=== PATIENT | male | born 1945 | race Caucasian/White ===

== ENCOUNTER 2018-08-15 19:12 | Emergency (ER) | payer MEDICARE ==
[~2018-08-15] VITALS: Ht 177.8 cm; Wt 96.0 kg
[~2018-08-15 19:12] MED LIST: ASPI-515 PO; ATOR-2 PO; BUME1TAB21 PO; CARV12.543 PO; CEFD300C37 PO; CLOP75TA PO; DOXY100T PO; Folic Acid PO; HYDR-3237 PO; INSU100V5 SQ-INSULIN; ISOS20TA3 PO; LATA2.5D3 EACHEYE; LISI-170 PO; MAGN400T7 PO; METF500T27 PO; OMEP-110 PO; PRED20TA PO; RIVA1TAB PO; SPIR25TA5 PO; TERA5CAP3 PO; THIA100T67 PO; TIMO5DRO5 EACHEYE
--- NOTE | 2018-08-15 19:46 | NUR ---
Assumed care of patient. C/O dry cough x 2 weeks. C/O one episode of diaphoresis, chest tightness and dizziness around 1700, since resolved. Expiratory wheezing. +smoker. Denies COPD Hx. Hx CHF, HTN, DM, and pacer. 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 Will continue to monitor.
[2018-08-15] MEDS ORDERED: SODIUM CHLORIDE FLUSH 10ML SYR IVF ONE (20:30)
[2018-08-15] MEDS ORDERED: SODIUM CHLORIDE 0.9% 1,000ML IVBOLUS ONE ×3 (20:30→21:00)
[2018-08-15 20:47] LABS: BASOPHILS # (AUTO) 0.03 x10^3/uL (0-0.1); BASOPHILS % (AUTO) 0 % (0-1); EOSINOPHILS # (AUTO) 0.17 x10^3/uL (0-0.4); EOSINOPHILS % (AUTO) 2 % (1-7); LYMPHOCYTES # (AUTO) 1.76 x10^3/uL (1-3.4); LYMPHOCYTES % (AUTO) 22 % (22-44); MD NO; MEAN CORPUSCULAR HGB CONC 34.6 g/dL (33.2-36.2); MEAN CORPUSCULAR VOLUME 92.4 fL (81-97); MEAN PLATELET VOLUME 10.3 fL (7.4-10.4); MONOCYTES # (AUTO) 0.48 x10^3/uL (0.2-0.8); MONOCYTES % (AUTO) 6 % (2-9); NEUTROPHILS # (AUTO) 5.51 x10^3/uL (1.8-6.8); NEUTROPHILS % (AUTO) 69 % (42-75); PLATELET COUNT 123 x10^3/uL (130-400); RED BLOOD COUNT 3.68 x10^6/uL (4.38-5.82); RED CELL DISTRIBUTION WIDTH 16.4 % (9.4-14.8)
[2018-08-15 20:56] LABS: INTERNATIONAL NORMALIZED RATIO 1.89 (0.93-1.1); PROTHROMBIN TIME 19.4 Seconds (9.6-11.5)
[2018-08-15 20:57] LABS: ALBUMIN 3.7 g/dL (3.4-5.0); ANION GAP 8 mmol/L (5-15); CALCIUM 8.3 mg/dL (8.5-10.1); CHLORIDE 110 mmol/L (98-107)
[2018-08-15 21:03] LABS: ALANINE AMINOTRANSFERASE 24 U/L (12-78); ALKALINE PHOSPHATASE 86 U/L (45-117); BILIRUBIN,TOTAL 1.2 mg/dL (0.2-1.0); CREATININE 1.37 mg/dL (0.7-1.3); TOTAL PROTEIN 6.8 g/dL (6.4-8.2); TROPONIN I 0.042 ng/mL (0.000-0.045)
[2018-08-15 21:15] VITALS: BP 105/61
--- NOTE | 2018-08-15 21:15 | NUR ---
Remains slightly hypotensive despite fluid bolus. Second 500 mL NS bolus hung. No other needs.
--- NOTE | 2018-08-15 22:06 | NUR ---
Patient/Caregiver given discharge instructions and they have confirmed that they understand the instructions. Patient ambulatory with steady gait.
== END 2018-08-15 22:07 | disposition home or self-care (01) ==
LOC: ED 21:56
DX: I95.9 Hypotension, unspecified (principal); I10 Essential (primary) hypertension; E11.9 Type 2 diabetes mellitus without complications; Z95.0 Presence of cardiac pacemaker
CPT/HCPCS: 36415; 71045; 80053; 84484; 85025; 85610; 85730; 93005; 96360; 99284; J7030

== ENCOUNTER 2019-04-23 12:00 | Emergency (ER) | payer MEDICARE, MEDICAID ==
[~2019-04-23] VITALS: Ht 177.8 cm; Wt 99.0 kg
[~2019-04-23 12:00] MED LIST changes: -MAGN400T7 PO; +MAGN400T9 PO
[2019-04-23 12:19] VITALS: BP 127/43
[2019-04-23] MEDS ORDERED: DEXAMETHASONE 4 MG TABLET ONE ×2 (13:29→13:32)
[2019-04-23] MEDS ORDERED: DEXAMETHASONE 4 MG TABLET PO ONE (13:30)
== END 2019-04-23 13:36 | disposition home or self-care (01) ==
LOC: ED 13:00
DX: B34.9 Viral infection, unspecified (principal); R42 Dizziness and giddiness; I10 Essential (primary) hypertension; I48.91 Unspecified atrial fibrillation; Z87.891 Personal history of nicotine dependence
CPT/HCPCS: 71046; 93005; 99283

== ENCOUNTER 2019-12-31 08:24 | Emergency (ER) | payer MEDICARE, MEDICAID ==
[~2019-12-31] VITALS: Ht 177.8 cm; Wt 96.0 kg
[2019-12-31 08:30] VITALS: BP 110/46
== END 2019-12-31 09:38 | disposition home or self-care (01) ==
LOC: ED 09:24
DX: S50.12XA Contusion of left forearm, initial encounter (principal); I10 Essential (primary) hypertension; E11.9 Type 2 diabetes mellitus without complications; I48.91 Unspecified atrial fibrillation; Z95.0 Presence of cardiac pacemaker; X58.XXXA Exposure to other specified factors, initial encounter; Y93.89 Activity, other specified; Y92.89 Other specified places as the place of occurrence of the external cause; Y99.8 Other external cause status
CPT/HCPCS: 99281

== ENCOUNTER 2020-01-23 17:32 | Emergency (ER) | payer MEDICARE, MEDICAID ==
[~2020-01-23] VITALS: Ht 177.8 cm; Wt 86.0 kg
--- NOTE | 2020-01-23 18:05 | NUR ---
C/O LEFT HAND SWELLING AND PAIN X2 DAYS, PT STATES PAIN IS 10/10. PLACED ON VITALS MONITORS. ER PROVIDER AT BEDSIDE FOR EVAL.
[2020-01-23] MEDS ORDERED: ONDANSETRON ODT 4 MG ONE (18:25)
[2020-01-23] MEDS ORDERED: HYDROcodone/APAP 5/325 TABLET ONE (18:25)
[2020-01-23] MEDS ORDERED: ONDANSETRON 4 MG TABLET PO ONE (18:30)
[2020-01-23] MEDS ORDERED: HYDROcodone/APAP 5/325 TABLET PO ONE (18:30)
[2020-01-23 18:31] LABS: BASOPHILS % (AUTO) 1 % (0-1); EOSINOPHILS # (AUTO) 0.02 x10^3/uL (0-0.4); EOSINOPHILS % (AUTO) 0 % (1-7); LYMPHOCYTES # (AUTO) 1.12 x10^3/uL (1-3.4); LYMPHOCYTES % (AUTO) 10 % (22-44); MD NO; MEAN CORPUSCULAR HEMOGLOBIN 30.9 pg (27.5-34.5); MEAN CORPUSCULAR HGB CONC 32.8 g/dL (33.2-36.2); MEAN CORPUSCULAR VOLUME 94.2 fL (81-97); MEAN PLATELET VOLUME 8.9 fL (7.4-10.4); MONOCYTES # (AUTO) 0.66 x10^3/uL (0.2-0.8); MONOCYTES % (AUTO) 6 % (2-9); NEUTROPHILS # (AUTO) 8.86 x10^3/uL (1.8-6.8); NEUTROPHILS % (AUTO) 82 % (42-75); PLATELET COUNT 140 x10^3/uL (130-400); RED BLOOD COUNT 3.22 x10^6/uL (4.38-5.82); RED CELL DISTRIBUTION WIDTH 15.4 % (9.4-14.8)
[2020-01-23 18:42] LABS: ALANINE AMINOTRANSFERASE 18 U/L (12-78); ALBUMIN 3.5 g/dL (3.4-5.0); ANION GAP 9 mmol/L (5-15); CALCIUM 8.8 mg/dL (8.5-10.1); CHLORIDE 109 mmol/L (98-107); CREATININE 1.47 mg/dL (0.7-1.3)
[2020-01-23 18:45] LABS: ALKALINE PHOSPHATASE 79 U/L (45-117); BILIRUBIN,TOTAL 1.7 mg/dL (0.2-1.0); TOTAL PROTEIN 6.9 g/dL (6.4-8.2)
--- NOTE | 2020-01-23 18:54 | NUR ---
PT IN NAD. FALL PRECAUTIONS IN PLACE, CALL LIGHT WITHIN REACH.
[2020-01-23] MEDS ORDERED: CEFTRIAXONE PMX 1GM/50ML 50 ML IV ONE (19:00)
[2020-01-23] MEDS ORDERED: CEFTRIAXONE PMX 1GM/50ML 50 ML ONE (19:15)
--- NOTE | 2020-01-23 19:17 | NUR ---
ABX RUNNING AFTER BLOOD CX DRAWN.
[2020-01-23 19:48] VITALS: BP 113/49
--- NOTE | 2020-01-23 19:51 | NUR ---
PT RESTING, REPORTS PAIN IS 2/10 ON PAIN SCALE, VSS. CALL LIGHT WITHIN REACH.
== END 2020-01-23 20:13 | disposition home or self-care (01) ==
LOC: ED 18:27
DX: L03.114 Cellulitis of left upper limb (principal); I12.9 Hypertensive chronic kidney disease with stage 1 through stage 4 chronic kidney disease, or unspecified chronic kidney disease; E11.22 Type 2 diabetes mellitus with diabetic chronic kidney disease; N18.2 Chronic kidney disease, stage 2 (mild); I48.91 Unspecified atrial fibrillation; Z95.0 Presence of cardiac pacemaker; Z87.891 Personal history of nicotine dependence
CPT/HCPCS: 36415; 80053; 83605; 84145; 85025; 87040; 96365; 99284; J0696; Q0162

== ENCOUNTER 2020-02-05 18:28 | Emergency (ER) | payer MEDICARE, MEDICAID ==
[~2020-02-05] VITALS: Ht 177.8 cm; Wt 96.2 kg
[2020-02-05 18:48] VITALS: BP 118/42
== END 2020-02-05 23:25 | disposition left against medical advice (07) ==
LOC: ED 22:50
DX: M79.645 Pain in left finger(s) (principal); I48.91 Unspecified atrial fibrillation; E11.9 Type 2 diabetes mellitus without complications; I10 Essential (primary) hypertension; Z95.0 Presence of cardiac pacemaker; Z87.891 Personal history of nicotine dependence
CPT/HCPCS: 82962; 99283

== ENCOUNTER 2020-04-10 07:48 | Emergency (ER) | payer MEDICARE, MEDICAID ==
[~2020-04-10] VITALS: Ht 177.8 cm; Wt 94.0 kg
[~2020-04-10 07:48] MED LIST changes: -LATA2.5D3 EACHEYE; +LATA2.5D4 EACHEYE
[2020-04-10 09:04] LABS: BASOPHILS % (AUTO) 1 % (0-1); EOSINOPHILS % (AUTO) 0 % (1-7); LYMPHOCYTES % (AUTO) 16 % (22-44); MEAN CORPUSCULAR HGB CONC 33.1 g/dL (33.2-36.2); MEAN PLATELET VOLUME 9.8 fL (7.4-10.4); MONOCYTES % (AUTO) 11 % (2-9); NEUTROPHILS % (AUTO) 73 % (42-75); PLATELET COUNT 138 x10^3/uL (130-400); RED CELL DISTRIBUTION WIDTH 16.6 % (9.4-14.8)
[2020-04-10 09:08] LABS: MD NO
[2020-04-10 09:14] LABS: ANION GAP 9 mmol/L (5-15); CALCIUM 9.5 mg/dL (8.5-10.1); CHLORIDE 103 mmol/L (98-107)
[2020-04-10 09:17] LABS: ALANINE AMINOTRANSFERASE 25 U/L (12-78); ALKALINE PHOSPHATASE 108 U/L (45-117); BILIRUBIN,TOTAL 1.5 mg/dL (0.2-1.0); CREATININE 2.17 mg/dL (0.7-1.3); TOTAL PROTEIN 8.1 g/dL (6.4-8.2)
[2020-04-10 11:24] VITALS: BP 110/74
== END 2020-04-10 11:25 | disposition home or self-care (01) ==
LOC: ED 11:15
DX: U07.1 COVID-19 (principal); N28.9 Disorder of kidney and ureter, unspecified; R42 Dizziness and giddiness; R51.9 Headache, unspecified; I10 Essential (primary) hypertension; E11.9 Type 2 diabetes mellitus without complications; I48.91 Unspecified atrial fibrillation
CPT/HCPCS: 36415; 71045; 80053; 85025; 87635; 99284

== ENCOUNTER 2020-07-07 19:25 | Inpatient (IN) | payer MEDICARE, MEDICAID ==
[~2020-07-07] VITALS: Ht 177.8 cm; Wt 89.8 kg
[~2020-07-07 19:25] MED LIST changes: +APIX5TAB PO; -ASPI-515 PO; +ASPI-963 PO; +ATOR40TA78 PO; +DULA0.75 SQ-INSULIN; +INSU100V35 SQ-INSULIN; +ISOS20TA10 PO; -ISOS20TA3 PO; +LOSA25TA25 PO; +METF500T17 PO; +OMEP40CA42 PO
[2020-07-07 21:31] LABS: BASOPHILS % (AUTO) 1 % (0-1); EOSINOPHILS % (AUTO) 1 % (1-7); LYMPHOCYTES % (AUTO) 20 % (22-44); MEAN CORPUSCULAR HEMOGLOBIN 30.1 pg (27.5-34.5); MEAN CORPUSCULAR HGB CONC 33.4 g/dL (33.2-36.2); MEAN PLATELET VOLUME 9.4 fL (7.4-10.4); MONOCYTES % (AUTO) 6 % (2-9); NEUTROPHILS % (AUTO) 72 % (42-75); PLATELET COUNT 124 x10^3/uL (130-400); RED BLOOD COUNT 3.24 x10^6/uL (4.38-5.82); RED CELL DISTRIBUTION WIDTH 18.4 % (9.4-14.8)
[2020-07-07 21:37] LABS: MD NO
[2020-07-07 21:41] LABS: ALBUMIN 3.6 g/dL (3.4-5.0); ANION GAP 11 mmol/L (5-15); CALCIUM 8.9 mg/dL (8.5-10.1); CHLORIDE 105 mmol/L (98-107); CREATININE 2.03 mg/dL (0.7-1.3)
[2020-07-07 21:45] LABS: TROPONIN I 0.058 ng/mL (0.000-0.045)
[2020-07-07] MEDS ORDERED: OMNIPAQUE 350 MG/ML, 100ML BOTTLE ONE (22:00)
[2020-07-07] MEDS ORDERED: SODIUM CHLORIDE 0.9% 1,000ML IVBOLUS ONE (23:00)
[2020-07-07] MEDS ORDERED: DEXTROSE 4 GM TAB.CHEW PO PRN (23:30)
[2020-07-07] MEDS ORDERED: GLUCAGON 1 MG IM PRN (23:30)
[2020-07-07] MEDS ORDERED: HYDROcodone/APAP 5/325 TABLET PO PRN (23:30)
[2020-07-07] MEDS ORDERED: ONDANSETRON 2MG/ML, 2ML IVPush PRN (23:30)
[2020-07-07] MEDS ORDERED: ACETAMINOPHEN 325 MG TABLET PO PRN (23:30)
[2020-07-07] MEDS ORDERED: DOCUSATE 100 MG CAPSULE PO PRN (23:30)
[2020-07-07] MEDS ORDERED: SODIUM CHLORIDE 0.9% 1,000 ML IV SCH (23:30)
[2020-07-07] MEDS ORDERED: hydrALAzine 20 MG/ML, 1ML IVPush PRN (23:30)
[2020-07-07] MEDS ORDERED: DEXTROSE 50%, 50ML SYRINGE IVPush PRN (23:30)
[2020-07-07 23:46] LABS: TROPONIN I 0.086 ng/mL (0.000-0.045)
[2020-07-08] VITALS: BP 95/62
[2020-07-08 00:02] VITALS: BP 104/66
[2020-07-08 00:05] VITALS: BP 112/66
[2020-07-08 05:22] LABS: BASOPHILS % (AUTO) 1 % (0-1); EOSINOPHILS % (AUTO) 2 % (1-7); LYMPHOCYTES % (AUTO) 27 % (22-44); MEAN CORPUSCULAR HEMOGLOBIN 30.3 pg (27.5-34.5); MEAN CORPUSCULAR HGB CONC 33.9 g/dL (33.2-36.2); MONOCYTES % (AUTO) 6 % (2-9); NEUTROPHILS % (AUTO) 64 % (42-75); PLATELET COUNT 100 x10^3/uL (130-400); RED BLOOD COUNT 3.03 x10^6/uL (4.38-5.82); RED CELL DISTRIBUTION WIDTH 18.2 % (9.4-14.8)
[2020-07-08 05:26] LABS: MD NO
[2020-07-08 05:30] LABS: ALBUMIN 3.3 g/dL (3.4-5.0); ANION GAP 9 mmol/L (5-15); CALCIUM 8.9 mg/dL (8.5-10.1); CHLORIDE 107 mmol/L (98-107)
[2020-07-08 05:38] LABS: ALANINE AMINOTRANSFERASE 21 U/L (12-78); ALKALINE PHOSPHATASE 80 U/L (45-117); BILIRUBIN,TOTAL 0.5 mg/dL (0.2-1.0); CREATININE 1.75 mg/dL (0.7-1.3); TOTAL PROTEIN 6.5 g/dL (6.4-8.2); TROPONIN I 0.136 ng/mL (0.000-0.045)
[2020-07-08] MEDS: INSULIN LISPRO 100 UNITS/ML, PEN SQ-INSULIN SCH ×4 (07:48→20:23)
[2020-07-08] MEDS ORDERED: METF500T17 PO (08:02)
[2020-07-08] MEDS ORDERED: SEMA0.25 SQ (08:02)
[2020-07-08] MEDS ORDERED: ISOS10TA6 PO (08:02)
[2020-07-08] MEDS ORDERED: FURO20TA3 PO (08:02)
[2020-07-08 08:28] VITALS: BP 116/75
[2020-07-08] MEDS ORDERED: APIXABAN 5 MG TABLET PO SCH (09:00)
[2020-07-08] MEDS: INSULIN GLARGINE 100 UNITS/ML, PEN SQ-INSULIN SCH (09:05)
[2020-07-08] MEDS: CARVEDILOL 12.5 MG TABLET PO SCH ×2 (09:06→20:22)
[2020-07-08] MEDS: OMEPRAZOLE 20 MG CAPSULE.DR PO SCH (09:06)
[2020-07-08] MEDS: SODIUM CHLORIDE FLUSH 10ML SYR IVF SCH ×2 (09:11→20:29)
[2020-07-08 09:37] LABS: TROPONIN I 0.162 ng/mL (0.000-0.045)
[2020-07-08] MEDS: TIMOLOL OPHTH 0.5%, 5ML EACHEYE SCH ×2 (09:49→20:25)
[2020-07-08] MEDS ORDERED: SODIUM CHLORIDE 0.9% 500 ML IV SCH (11:30)
[2020-07-08 12:26] VITALS: BP 98/63
[2020-07-08] MEDS: FUROSEMIDE 40 MG/4 ML IV SCH (14:24)
[2020-07-08 15:02] LABS: TROPONIN I 0.117 ng/mL (0.000-0.045)
[2020-07-08 16:45] LABS: CHLORIDE,URINE RANDOM 83 mmol/L; POTASSIUM,URINE RANDOM 39 mmol/L; SODIUM,URINE RANDOM 71 mmol/L
[2020-07-08 16:59] LABS: CREATININE,URINE RANDOM 43.4 mg/dL
[2020-07-08 19:25] VITALS: BP 119/79
[2020-07-08] MEDS: ATORVASTATIN 40 MG TABLET PO SCH (20:22)
[2020-07-08] MEDS: APIXABAN 5 MG TABLET PO SCH (20:22)
[2020-07-08] MEDS: LATANOPROST OPHTH 0.005%, 2.5ML EACHEYE SCH (21:00)
[2020-07-09] VITALS (7 sets, daily range): BP systolic 99–121; BP diastolic 65–99
[2020-07-09 00:08] LABS: TROPONIN I 0.091 ng/mL (0.000-0.045)
[2020-07-09 05:28] LABS: BASOPHILS % (AUTO) 1 % (0-1); EOSINOPHILS % (AUTO) 2 % (1-7); LYMPHOCYTES % (AUTO) 26 % (22-44); MEAN CORPUSCULAR HEMOGLOBIN 30.4 pg (27.5-34.5); MEAN CORPUSCULAR HGB CONC 33.8 g/dL (33.2-36.2); MEAN PLATELET VOLUME 10.3 fL (7.4-10.4); MONOCYTES % (AUTO) 6 % (2-9); NEUTROPHILS % (AUTO) 65 % (42-75); PLATELET COUNT 119 x10^3/uL (130-400); RED BLOOD COUNT 3.24 x10^6/uL (4.38-5.82); RED CELL DISTRIBUTION WIDTH 17.8 % (9.4-14.8)
[2020-07-09 05:29] LABS: ANION GAP 7 mmol/L (5-15); CALCIUM 8.5 mg/dL (8.5-10.1); CHLORIDE 108 mmol/L (98-107)
[2020-07-09 05:31] LABS: CREATININE 1.53 mg/dL (0.7-1.3)
[2020-07-09 05:44] LABS: MD NO
[2020-07-09] MEDS: INSULIN LISPRO 100 UNITS/ML, PEN SQ-INSULIN SCH ×4 (07:00→20:13)
[2020-07-09] MEDS: INSULIN GLARGINE 100 UNITS/ML, PEN SQ-INSULIN SCH (08:08)
[2020-07-09] MEDS: FUROSEMIDE 40 MG/4 ML IV SCH (08:09)
[2020-07-09] MEDS: SODIUM CHLORIDE FLUSH 10ML SYR IVF SCH ×2 (08:10→20:14)
[2020-07-09] MEDS: TIMOLOL OPHTH 0.5%, 5ML EACHEYE SCH ×2 (08:10→20:11)
[2020-07-09] MEDS: APIXABAN 5 MG TABLET PO SCH ×2 (08:12→20:11)
[2020-07-09] MEDS: CARVEDILOL 12.5 MG TABLET PO SCH ×2 (08:12→20:12)
[2020-07-09] MEDS: OMEPRAZOLE 20 MG CAPSULE.DR PO SCH (08:12)
[2020-07-09] MEDS: ATORVASTATIN 40 MG TABLET PO SCH (20:11)
[2020-07-09] MEDS: LATANOPROST OPHTH 0.005%, 2.5ML EACHEYE SCH (20:11)
[2020-07-10 00:17] VITALS: BP 142/92
[2020-07-10 05:48] LABS: BASOPHILS % (AUTO) 1 % (0-1); EOSINOPHILS % (AUTO) 2 % (1-7); LYMPHOCYTES % (AUTO) 20 % (22-44); MEAN CORPUSCULAR HEMOGLOBIN 30.5 pg (27.5-34.5); MEAN CORPUSCULAR HGB CONC 33.9 g/dL (33.2-36.2); MONOCYTES % (AUTO) 6 % (2-9); NEUTROPHILS % (AUTO) 71 % (42-75); PLATELET COUNT 112 x10^3/uL (130-400); RED BLOOD COUNT 3.28 x10^6/uL (4.38-5.82); RED CELL DISTRIBUTION WIDTH 18.3 % (9.4-14.8)
[2020-07-10 05:59] LABS: MD NO
[2020-07-10 06:02] LABS: CALCIUM 8.9 mg/dL (8.5-10.1); CHLORIDE 111 mmol/L (98-107)
[2020-07-10 06:05] LABS: ANION GAP 8 mmol/L (5-15); CREATININE 1.32 mg/dL (0.7-1.3)
[2020-07-10 07:00] VITALS: BP 112/70
[2020-07-10] MEDS: TIMOLOL OPHTH 0.5%, 5ML EACHEYE SCH (09:17)
[2020-07-10] MEDS: OMEPRAZOLE 20 MG CAPSULE.DR PO SCH (09:17)
[2020-07-10] MEDS: APIXABAN 5 MG TABLET PO SCH (09:17)
[2020-07-10] MEDS: INSULIN GLARGINE 100 UNITS/ML, PEN SQ-INSULIN SCH (09:18)
[2020-07-10] MEDS: CARVEDILOL 12.5 MG TABLET PO SCH (09:18)
[2020-07-10] MEDS: SODIUM CHLORIDE FLUSH 10ML SYR IVF SCH (09:19)
[2020-07-10] MEDS: INSULIN LISPRO 100 UNITS/ML, PEN SQ-INSULIN SCH ×2 (09:19→11:56)
[2020-07-10] MEDS: FUROSEMIDE 40 MG/4 ML IV SCH (09:20)
[2020-07-10] MEDS ORDERED: FURO20TA3 PO (10:01)
[2020-07-10] MEDS ORDERED: LOSA25TA25 PO (10:01)
[2020-07-10] MEDS ORDERED: ACET325T26 PO (10:01)
[2020-07-10 13:26] VITALS: BP 103/65
== END 2020-07-10 13:52 | DRG 280 ==
LOC: ED 21:33 → INTOOBSV 23:29 → EDIP 23:29 → 4WST 23:55 → OBSVTOIN 07-08 13:41
PROVIDERS: ADMIT Internal Medicine; ATTEND Internal Medicine
DX: I13.0 Hypertensive heart and chronic kidney disease with heart failure and stage 1 through stage 4 chronic kidney disease, or unspecified chronic kidney disease (principal); I50.23 Acute on chronic systolic (congestive) heart failure; I21.A1 Myocardial infarction type 2; N17.9 Acute kidney failure, unspecified; E87.2 Acidosis; D64.9 Anemia, unspecified; I95.1 Orthostatic hypotension; D69.6 Thrombocytopenia, unspecified; E11.22 Type 2 diabetes mellitus with diabetic chronic kidney disease; E78.5 Hyperlipidemia, unspecified; I99.8 Other disorder of circulatory system; I25.10 Atherosclerotic heart disease of native coronary artery without angina pectoris; I65.23 Occlusion and stenosis of bilateral carotid arteries; N18.31 Chronic kidney disease, stage 3a; Z66 Do not resuscitate; Z79.01 Long term (current) use of anticoagulants; Z79.4 Long term (current) use of insulin; Z87.891 Personal history of nicotine dependence; Z95.1 Presence of aortocoronary bypass graft; Z95.810 Presence of automatic (implantable) cardiac defibrillator
CPT/HCPCS: 36415; 70450; 70496; 70498; 80048; 80053; 80320; 82040; 82436; 82570; 82962; 83605; 83735; 83880; 84100; 84133; 84300; 84484; 85025; 93005; 93306; 99285; G0378; J1940; Q9967; G0480; J1815; J7030; J7040

== ENCOUNTER 2020-10-03 07:38 | Emergency (ER) | payer MEDICARE, MEDICAID ==
[~2020-10-03] VITALS: Ht 177.8 cm; Wt 86.9 kg
[~2020-10-03 07:38] MED LIST changes: +ACET325T26 PO; +FURO20TA3 PO; +ISOS10TA6 PO; -OMEP40CA42 PO; +OMEP40CA8 PO; +SEMA0.25 SQ
[2020-10-03] MEDS ORDERED: MAALOX/HYOSCYAMINE/LIDOCAINE 45 ML BTL PO ONE (08:00)
[2020-10-03] MEDS ORDERED: SODIUM CHLORIDE FLUSH 10ML SYR IVF ONE (08:00)
--- NOTE | 2020-10-03 08:10 | NUR ---
price lister: pt from lobby to x-ray then to room 1
--- NOTE | 2020-10-03 08:15 | NUR ---
ABD PAIN WHEN HE SWALLOWS X 1 WEEK. PT WITH STEADY GAIT TO BED. POSTIONED TO COMFORT. ATTACHED TO MONITORS. VSS. IBRAHIM.
[2020-10-03] MEDS ORDERED: MAALOX/HYOSCYAMINE/LIDOCAINE 45 ML BTL ONE (08:17)
--- NOTE | 2020-10-03 08:25 | NUR ---
pt medicated per emar. states "it feels like i have a burp stuck in my chest" after drinking gi cocktail
[2020-10-03 08:36] LABS: BASOPHILS % (AUTO) 1 % (0-1); EOSINOPHILS % (AUTO) 2 % (1-7); LYMPHOCYTES % (AUTO) 32 % (22-44); MEAN CORPUSCULAR HEMOGLOBIN 30.7 pg (27.5-34.5); MEAN CORPUSCULAR HGB CONC 33.3 g/dL (33.2-36.2); MEAN PLATELET VOLUME 9.8 fL (7.4-10.4); MONOCYTES % (AUTO) 7 % (2-9); NEUTROPHILS % (AUTO) 57 % (42-75); PLATELET COUNT 129 x10^3/uL (130-400); RED BLOOD COUNT 3.65 x10^6/uL (4.38-5.82); RED CELL DISTRIBUTION WIDTH 18.1 % (9.4-14.8)
[2020-10-03 08:37] LABS: MD NO
[2020-10-03 08:41] LABS: ALBUMIN 3.6 g/dL (3.4-5.0); ANION GAP 6 mmol/L (5-15); CALCIUM 8.9 mg/dL (8.5-10.1); CHLORIDE 106 mmol/L (98-107)
[2020-10-03 08:43] LABS: INTERNATIONAL NORMALIZED RATIO 1.35 (0.93-1.1); PROTHROMBIN TIME 14.4 Seconds (9.6-11.5)
[2020-10-03 08:46] LABS: ALANINE AMINOTRANSFERASE 81 U/L (12-78); ALKALINE PHOSPHATASE 127 U/L (45-117); BILIRUBIN,TOTAL 1.1 mg/dL (0.2-1.0); CREATININE 1.51 mg/dL (0.7-1.3); TOTAL PROTEIN 7.5 g/dL (6.4-8.2)
--- NOTE | 2020-10-03 08:49 | NUR ---
SBAR RPT REC'D AND PT CARE ASSUMED. PT VSS AND NADN. PT VERBALIZES THAT GI COCTAIL RESSOLVED HIS PAIN.
--- NOTE | 2020-10-03 08:50 | NUR ---
REPORT TO VINCE DIAZ.
[2020-10-03] MEDS ORDERED: FAMOTIDINE 20 MG/2 ML IVPush ONE (09:00)
[2020-10-03] MEDS ORDERED: FAMOTIDINE 20 MG TABLET ONE (09:08)
[2020-10-03] MEDS ORDERED: FAMOTIDINE 20 MG TABLET PO ONE (09:30)
[2020-10-03 10:56] VITALS: BP 100/68
--- NOTE | 2020-10-03 10:57 | NUR ---
Patient given discharge instructions and they have confirmed that they understand the instructions. Patient ambulatory with steady gait.
== END 2020-10-03 10:58 | disposition home or self-care (01) ==
LOC: ED 08:18
DX: K21.00 Gastro-esophageal reflux disease with esophagitis, without bleeding (principal); K80.20 Calculus of gallbladder without cholecystitis without obstruction; R10.13 Epigastric pain; Z79.01 Long term (current) use of anticoagulants; E11.9 Type 2 diabetes mellitus without complications
CPT/HCPCS: 36415; 71045; 76700; 80053; 83690; 83880; 85025; 85610; 93005; 99285

== ENCOUNTER 2020-10-13 01:42 | Observation (INO) | payer MEDICARE, MEDICAID ==
[~2020-10-13] VITALS: Ht 177.8 cm; Wt 91.3 kg
[2020-10-13] VITALS (7 sets, daily range): BP systolic 113–120; BP diastolic 63–81
[2020-10-13] MEDS ORDERED: TORS20TA2 PO (02:35)
[2020-10-13] MEDS ORDERED: CLOPIDOGREL PO (02:35)
[2020-10-13] MEDS ORDERED: INSU100V35 SC (02:35)
[2020-10-13] MEDS ORDERED: OMEG1CAP34 PO (02:35)
[2020-10-13] MEDS ORDERED: VIT1CAPS11 PO (02:35)
--- NOTE | 2020-10-13 02:39 | NUR ---
PT CAME INTO ED THIS EVENING DUE TO ABDOMINAL PAIN. WAS SEEN HERE ON THE FOR [facility] AND FOLLOWED UP WITH SURG. PT WAS TOLD TO COME BACK HERE IF PAIN WORSENED. PT REPORTS PAIN IS SIGNIFICANTLY WORSE NOW, PT DENIES VOMITTING OR DIARRHEA, PT REPORTS UPPER QUADRANT ABDOMINAL PAIN. PT APPEARS PALE. PT BED IN LOWEST, RAILS ENGAGED, CALL LIGHT ON LAP, WCTM.
[2020-10-13] MEDS ORDERED: MORPHINE SULFATE 4 MG/ML, 1ML ONE (02:57)
[2020-10-13] MEDS ORDERED: ONDANSETRON 2MG/ML, 2ML ONE (02:57)
[2020-10-13] MEDS ORDERED: SODIUM CHLORIDE FLUSH 10ML SYR IVF ONE (03:00)
[2020-10-13] MEDS ORDERED: ONDANSETRON 2MG/ML, 2ML IVPush ONE (03:00)
[2020-10-13] MEDS ORDERED: MORPHINE SULFATE 4 MG/ML, 1ML IVPush PRN (03:00)
--- NOTE | 2020-10-13 03:11 | NUR ---
Patient is resting in bed. PT SHOWING SIGNS OF PAIN. Bed in lowest, rails engaged, call light on lap. Vital Signs within normal limits. WCTM.
[2020-10-13 03:12] LABS: BASOPHILS % (AUTO) 1 % (0-1); EOSINOPHILS % (AUTO) 2 % (1-7); LYMPHOCYTES % (AUTO) 27 % (22-44); MEAN CORPUSCULAR HEMOGLOBIN 30.5 pg (27.5-34.5); MEAN PLATELET VOLUME 10.5 fL (7.4-10.4); MONOCYTES % (AUTO) 7 % (2-9); NEUTROPHILS % (AUTO) 63 % (42-75); PLATELET COUNT 120 x10^3/uL (130-400); RED BLOOD COUNT 3.42 x10^6/uL (4.38-5.82); RED CELL DISTRIBUTION WIDTH 18.4 % (9.4-14.8)
[2020-10-13 03:21] LABS: ALBUMIN 3.2 g/dL (3.4-5.0); ANION GAP 6 mmol/L (5-15); CHLORIDE 111 mmol/L (98-107)
[2020-10-13 03:25] LABS: ALANINE AMINOTRANSFERASE 30 U/L (12-78); ALKALINE PHOSPHATASE 118 U/L (45-117); BILIRUBIN,TOTAL 1.1 mg/dL (0.2-1.0); CREATININE 1.31 mg/dL (0.7-1.3); TOTAL PROTEIN 6.7 g/dL (6.4-8.2)
--- NOTE | 2020-10-13 04:11 | NUR ---
US AT BEDSIDE. PATRICE
[2020-10-13] MEDS ORDERED: CEFTRIAXONE 1,000 MG in DEXTROSE 5% 50 ML IVPB ONE (06:00)
--- NOTE | 2020-10-13 06:02 | NUR ---
Patient is SLEEPING comfortably in bed. Bed in lowest, rails engaged, call light on lap. Vital Signs within normal limits. WCTM. BREATHING EVEN AND UNLABORED.
--- NOTE | 2020-10-13 06:56 | NUR ---
GAVE REPORT TO JERALD DIAZ
--- NOTE | 2020-10-13 06:57 | NUR ---
Shara knight in ED - 10/13/20 at 0658 by [email or web address] I AM ASSUMING CARE OF THIS PT FROM SRIKANTH PRESLEY) AT THIS TIME. SBAR WAS EXCHANGED AT THE BEDSIDE.
--- NOTE | 2020-10-13 06:58 | NUR ---
I AM ASSUMING CARE OF THIS PT FROM SRIKANTH (JOE) AT THIS TIME. SBAR WAS EXCHANGED AT THE BEDSIDE.
--- NOTE | 2020-10-13 08:18 | NUR ---
BREAK RN: TALKED W SONIYA RN PRE OP. PT FOR HETAL AT 10AM. LAST PO INTAKE 7 PM YEST. PLAN RAPID COVID SWAB.
--- NOTE | 2020-10-13 08:26 | NUR ---
VERBAL SBAR EXCHANGED Francine MADRID (JOE) ON THE SURGICAL FLOOR. WE ARE DISCUSSING THE TIMING OF SURGERY DUE TO PLAVIX.
[2020-10-13] MEDS ORDERED: DEXTROSE 50%, 50ML SYRINGE ONE (08:31)
--- NOTE | 2020-10-13 08:38 | NUR ---
BREAK RN: BGL 48. CALLED [facility]. OBTAINED ORDER FOR 05/06 AMP D50, GIVEN AT [id number]. NOTIFIED PRIMARY RN.
--- NOTE | 2020-10-13 08:49 | NUR ---
PREPARING FOR TRANSPORT TO SURGICAL FLOOR AT THIS TIME.
[2020-10-13] MEDS ORDERED: D5%-LACTATED RINGERS 1,000 ML IV SCH (09:00)
[2020-10-13] MEDS ORDERED: DEXTROSE 50%, 50ML SYRINGE IVPush ONE (09:00)
[2020-10-13] MEDS ORDERED: morphine SULFATE 10 MG/ML, 1ML IVPush PRN (09:30)
[2020-10-13] MEDS ORDERED: DEXTROSE 50%, 50ML SYRINGE IVPush PRN ×2 (09:30)
[2020-10-13] MEDS ORDERED: LABETALOL 5MG/ML, 20ML IVPush PRN (09:30)
[2020-10-13] MEDS ORDERED: GLUCAGON 1 MG IM PRN ×2 (09:30)
[2020-10-13] MEDS ORDERED: ACETAMINOPHEN 325 MG TABLET PO PRN (09:30)
[2020-10-13] MEDS ORDERED: DEXTROSE 4 GM TAB.CHEW PO PRN ×2 (09:30)
[2020-10-13] MEDS ORDERED: CHLORHEXIDINE 15 ML UDC ONE (10:48)
[2020-10-13] MEDS: INSULIN LISPRO 100 UNITS/ML, PEN SQ-INSULIN SCH ×3 (11:00→21:25)
[2020-10-13] MEDS ORDERED: CHLORHEXIDINE 15 ML UDC PO ONE (11:00)
[2020-10-13] MEDS ORDERED: BUPIVACAINE/PF 0.5% ONE (11:11)
[2020-10-13] MEDS ORDERED: FENTANYL PF 250 MCG/5ML ONE (11:26)
[2020-10-13] MEDS ORDERED: SUCCINYLCHOLINE 20 MG/ML, 10ML ONE (11:29)
[2020-10-13] MEDS ORDERED: PROPOFOL 10 MG/ML, 20ML ONE (11:29)
[2020-10-13] MEDS ORDERED: D5%-0.9% NACL 1,000 ML IV SCH (11:30)
[2020-10-13] MEDS ORDERED: CEFOTETAN 2 GM ONE (11:42)
[2020-10-13] MEDS ORDERED: DEXAMETHASONE 4 MG/ML, 1ML ONE (11:42)
[2020-10-13] MEDS ORDERED: EPHEDRINE 50 MG/ML, 1ML ONE (11:53)
[2020-10-13] MEDS ORDERED: EPINEPHRINE 1 MG/ML, 1ML ONE ×3 (11:58→12:32)
[2020-10-13] MEDS ORDERED: PHENYLEPHRINE 10 MG/ML ONE (11:58)
[2020-10-13] MEDS ORDERED: BUPIVACAINE/PF-EPI 0.5% 1:200K INFIL ONE (11:58)
[2020-10-13] MEDS ORDERED: VASOPRESSIN 20 UNIT/ML, 1ML ONE (12:12)
[2020-10-13] MEDS ORDERED: SODIUM BICARBONATE 1 MEQ/ML, 50ML VIAL ONE (12:29)
[2020-10-13] MEDS ORDERED: CALCIUM CHLORIDE 10%, 10ML SYR ONE (12:32)
[2020-10-13] MEDS ORDERED: SODIUM CHLORIDE 0.9% 1,000 ML IV SCH ×3 (15:00→18:55)
[2020-10-13] MEDS ORDERED: morphine SULFATE 10 MG/ML, 1ML IV PRN (16:30)
[2020-10-13] MEDS ORDERED: ONDANSETRON 2MG/ML, 2ML IV PRN (16:30)
[2020-10-13 16:49] LABS: MEAN CORPUSCULAR HGB CONC 32.8 g/dL (33.2-36.2); MEAN PLATELET VOLUME 10.4 fL (7.4-10.4); PLATELET COUNT 118 x10^3/uL (130-400); RED BLOOD COUNT 3.44 x10^6/uL (4.38-5.82); RED CELL DISTRIBUTION WIDTH 17.9 % (9.4-14.8)
[2020-10-13 16:57] LABS: INTERNATIONAL NORMALIZED RATIO 1.92 (0.93-1.1); PROTHROMBIN TIME 20.3 Seconds (9.6-11.5)
[2020-10-13] MEDS ORDERED: POTASSIUM CHLORIDE 20 MEQ in D5%-LACTATED RINGERS 1,000 ML IV SCH (17:00)
[2020-10-13] MEDS: CEFOTETAN PMX 1GM/50ML 50 ML IVPB SCH (18:45)
[2020-10-13] MEDS ORDERED: SODIUM CHLORIDE FLUSH 10ML SYR IVF SCH (21:00)
[2020-10-13] MEDS: SODIUM CHLORIDE FLUSH 10ML SYR IVF SCH (21:15)
[2020-10-13] MEDS: SPIRONOLACTONE 25 MG TABLET PO SCH (21:24)
[2020-10-13] MEDS: ATORVASTATIN 40 MG TABLET PO SCH (21:25)
[2020-10-13] MEDS: CARVEDILOL 12.5 MG TABLET PO SCH (21:25)
[2020-10-13] MEDS: TORSEMIDE 20 MG TABLET PO SCH (21:25)
[2020-10-13] MEDS: LATANOPROST OPHTH 0.005%, 2.5ML EACHEYE SCH (22:14)
[2020-10-14 00:05] VITALS: BP 120/67
[2020-10-14 01:02] VITALS: BP 122/67
[2020-10-14] MEDS: CEFOTETAN PMX 1GM/50ML 50 ML IVPB SCH (05:18)
[2020-10-14 05:58] LABS: ALBUMIN 2.8 g/dL (3.4-5.0); ANION GAP 13 mmol/L (5-15); CALCIUM 9.1 mg/dL (8.5-10.1); CHLORIDE 115 mmol/L (98-107); CREATININE 1.53 mg/dL (0.7-1.3)
[2020-10-14 05:59] LABS: BASOPHILS % (AUTO) 0 % (0-1); EOSINOPHILS % (AUTO) 0 % (1-7); LYMPHOCYTES % (AUTO) 11 % (22-44); MEAN CORPUSCULAR HEMOGLOBIN 30.2 pg (27.5-34.5); MEAN CORPUSCULAR HGB CONC 32.6 g/dL (33.2-36.2); MEAN PLATELET VOLUME 10.3 fL (7.4-10.4); MONOCYTES % (AUTO) 4 % (2-9); NEUTROPHILS % (AUTO) 85 % (42-75); PLATELET COUNT 123 x10^3/uL (130-400); RED BLOOD COUNT 3.39 x10^6/uL (4.38-5.82); RED CELL DISTRIBUTION WIDTH 17.8 % (9.4-14.8)
[2020-10-14] MEDS: INSULIN LISPRO 100 UNITS/ML, PEN SQ-INSULIN SCH ×4 (07:00→21:59)
[2020-10-14] MEDS: ENOXAPARIN 40 MG/0.4 ML SQ SCH (07:25)
[2020-10-14] MEDS: CARVEDILOL 12.5 MG TABLET PO SCH ×2 (08:37→21:43)
[2020-10-14] MEDS: SODIUM CHLORIDE FLUSH 10ML SYR IVF SCH ×2 (08:37→21:42)
[2020-10-14] MEDS: TORSEMIDE 20 MG TABLET PO SCH ×2 (08:37→21:42)
[2020-10-14 12:41] VITALS: BP 110/65
[2020-10-14 14:38] VITALS: BP 117/79
[2020-10-14 20:06] VITALS: BP 105/69
[2020-10-14] MEDS: LATANOPROST OPHTH 0.005%, 2.5ML EACHEYE SCH ×2 (21:00→21:59)
[2020-10-14] MEDS: ATORVASTATIN 40 MG TABLET PO SCH (21:42)
[2020-10-14] MEDS: SPIRONOLACTONE 25 MG TABLET PO SCH (21:42)
[2020-10-15 00:42] VITALS: BP 139/86
[2020-10-15 05:16] LABS: BASOPHILS % (AUTO) 1 % (0-1); EOSINOPHILS % (AUTO) 1 % (1-7); LYMPHOCYTES % (AUTO) 18 % (22-44); MEAN CORPUSCULAR HEMOGLOBIN 29.9 pg (27.5-34.5); MEAN CORPUSCULAR HGB CONC 32.6 g/dL (33.2-36.2); MEAN PLATELET VOLUME 10.1 fL (7.4-10.4); MONOCYTES % (AUTO) 7 % (2-9); NEUTROPHILS % (AUTO) 73 % (42-75); PLATELET COUNT 124 x10^3/uL (130-400); RED BLOOD COUNT 3.73 x10^6/uL (4.38-5.82); RED CELL DISTRIBUTION WIDTH 17.3 % (9.4-14.8)
[2020-10-15 05:24] LABS: ANION GAP 9 mmol/L (5-15); CALCIUM 8.5 mg/dL (8.5-10.1); CHLORIDE 103 mmol/L (98-107)
[2020-10-15 05:26] LABS: CREATININE 1.72 mg/dL (0.7-1.3)
[2020-10-15] MEDS: ENOXAPARIN 40 MG/0.4 ML SQ SCH (05:57)
[2020-10-15] MEDS: SODIUM CHLORIDE 0.9%, 500ML IVBOLUS ONE ×2 (06:24→06:31)
[2020-10-15] MEDS: INSULIN LISPRO 100 UNITS/ML, PEN SQ-INSULIN SCH ×3 (07:00→17:11)
[2020-10-15 07:11] VITALS: BP 117/77
[2020-10-15] MEDS: SODIUM CHLORIDE FLUSH 10ML SYR IVF SCH (09:00)
[2020-10-15] MEDS: TORSEMIDE 20 MG TABLET PO SCH (10:30)
[2020-10-15] MEDS: CARVEDILOL 12.5 MG TABLET PO SCH (10:30)
[2020-10-15] MEDS ORDERED: TORS20TA2 PO (10:59)
[2020-10-15 12:26] VITALS: BP 110/72
== END 2020-10-15 18:23 | disposition home or self-care (01) ==
LOC: ED 02:52 → EDIP 06:29 → INTOOBSV 06:29 → 4NE 09:07 → CSU 12:42 → 4EST 10-14 14:40
PROVIDERS: ADMIT Internal Medicine; ATTEND Family Medicine
DX: K80.00 Calculus of gallbladder with acute cholecystitis without obstruction (principal); Z20.822 Contact with and (suspected) exposure to COVID-19; I95.89 Other hypotension; I25.10 Atherosclerotic heart disease of native coronary artery without angina pectoris; I48.0 Paroxysmal atrial fibrillation; I13.0 Hypertensive heart and chronic kidney disease with heart failure and stage 1 through stage 4 chronic kidney disease, or unspecified chronic kidney disease; E11.22 Type 2 diabetes mellitus with diabetic chronic kidney disease; I50.22 Chronic systolic (congestive) heart failure; N18.9 Chronic kidney disease, unspecified; E78.5 Hyperlipidemia, unspecified; H40.9 Unspecified glaucoma; J44.9 Chronic obstructive pulmonary disease, unspecified; E11.649 Type 2 diabetes mellitus with hypoglycemia without coma; K21.9 Gastro-esophageal reflux disease without esophagitis; E87.2 Acidosis; D69.6 Thrombocytopenia, unspecified; F17.200 Nicotine dependence, unspecified, uncomplicated; E87.8 Other disorders of electrolyte and fluid balance, not elsewhere classified; R18.8 Other ascites; Z95.1 Presence of aortocoronary bypass graft; Z79.899 Other long term (current) drug therapy; Z79.01 Long term (current) use of anticoagulants; Z79.4 Long term (current) use of insulin; Z86.16 Personal history of COVID-19; Z95.810 Presence of automatic (implantable) cardiac defibrillator
CPT/HCPCS: 36415; 47562; 76700; 80048; 80053; 82040; 82330; 82803; 82947; 82962; 83690; 84132; 84295; 85014; 85018; 85025; 85027; 85610; 85730; 86850; 86900; 87081; 87635; 88304; 96361; 96365; 96366; 96367; 96372; 96375; 96376; 99284; C1760; G0378; J0171; J0330; J0696; J1100; J1650; J1815; J2270; J2370; J2405; J2704; J3010; J7030; J7040; J7121; P9017; S0020; 94002